=== PATIENT | male | born 1955 | race Caucasian/White ===

== ENCOUNTER 2019-10-25 13:47 | Outpatient (REF) | payer SELFPAY ==
[2019-10-25 19:25] LABS: Anion Gap 9.6 mmol/L (3-11); BUN 9 mg/dL (7-18); CO2 27.4 mmol/L (21.0-32.0); Calcium 8.3 mg/dL (8.5-10.1); Calculated LDL 102 mg/dL (<100); Chloride 107 mmol/L (98-107); Cholesterol 204 mg/dL (<200); Glucose 93 mg/dL (74-106); HDL Cholesterol 84 mg/dL (40-60); Potassium 4.3 mmol/L (3.5-5.1); Sodium 144 mmol/L (136-145); Triglyceride 92 mg/dL (<150)
== END 2019-10-25 14:07 ==
LOC: NCHCN 13:47
PROVIDERS: PCP Nurse Practitioner Family; Visit Provider Nurse Practitioner Family
DX: I10 Essential (primary) hypertension (principal); Z13.220 Encounter for screening for lipoid disorders
CPT/HCPCS: 80048; 80061

== ENCOUNTER 2019-11-17 11:31 | Outpatient (REF) | payer OTHER, SELFPAY ==
[2019-11-17 20:41] LABS: ESR 19 mm/hr (1-20)
[2019-11-18 16:07] LABS: CRP, High Sensitivity 6.26 mg/L (See Note)
[2019-11-18 16:10] LABS: Rheumatoid Factor <8.6 IU/mL (<12.0)
== END 2019-11-17 11:51 ==
LOC: NCHCN 11:31
PROVIDERS: PCP Nurse Practitioner Family; Visit Provider Nurse Practitioner Family
DX: M25.50 Pain in unspecified joint (principal)
CPT/HCPCS: 85652; 86141; 86431

== ENCOUNTER 2020-06-28 09:31 | Outpatient (REF) | payer OTHER, SELFPAY ==
[2020-06-28 21:05] LABS: ALT 34 U/L (16-63); AST 61 U/L (15-37); Albumin 3.5 g/dL (3.4-5.0); Alkaline Phosphatase 87 U/L (46-116); Amylase 41 U/L (25-115); Anion Gap 11.5 mmol/L (3-11); BUN 8 mg/dL (7-18); Bilirubin, Total 0.4 mg/dL (0.2-1.0); CO2 23.5 mmol/L (21.0-32.0); Calcium 8.6 mg/dL (8.5-10.1); Chloride 105 mmol/L (98-107); Glucose 128 mg/dL (74-106); Lipase 234 U/L (73-393); Potassium 4.2 mmol/L (3.5-5.1); Sodium 140 mmol/L (136-145); Total Protein 7.5 g/dL (6.4-8.2)
[2020-06-28 21:44] LABS: Bilirubin, Direct 0.15 mg/dL (0.00-0.20)
== END 2020-06-28 09:51 ==
LOC: NCHCN 09:31
PROVIDERS: PCP Nurse Practitioner Family; Visit Provider Nurse Practitioner Family
DX: I10 Essential (primary) hypertension (principal); R10.9 Unspecified abdominal pain
CPT/HCPCS: 80048; 80076; 83690; 82150

== ENCOUNTER 2022-08-08 11:06 | Outpatient (REF) | payer OTHER, SELFPAY ==
[2022-08-08 20:36] LABS: ALT 27 U/L (16-63); AST 39 U/L (15-37); Albumin 3.5 g/dL (3.4-5.0); Alkaline Phosphatase 103 U/L (46-116); Anion Gap 8.6 mmol/L (3-11); BUN 11 mg/dL (7-18); Bilirubin, Total 0.4 mg/dL (0.2-1.0); CO2 25.4 mmol/L (21.0-32.0); Calcium 9.1 mg/dL (8.5-10.1); Chloride 103 mmol/L (98-107); Estimated GFR 82.49 (mL/min/1.73m2); Glucose 157 mg/dL (74-106); Potassium 4.5 mmol/L (3.5-5.1); Sodium 137 mmol/L (136-145)
[2022-08-08 21:10] LABS: Hemoglobin A1C 5.8 % (<5.7)
== END 2022-08-08 11:07 | disposition home or self-care (01) ==
LOC: NCHCN 11:06
PROVIDERS: PCP Nurse Practitioner Family; Visit Provider Physician Assistant
DX: I10 Essential (primary) hypertension (principal); Z83.3 Family history of diabetes mellitus
CPT/HCPCS: 80053; 83036

== ENCOUNTER 2023-08-05 20:08 | Outpatient (REF) | payer MEDICARE, SELFPAY ==
[2023-08-05 19:05] LABS: Abs Immature Grans 0.02 10^3/uL (0.0-0.06); Absolute Basophil Count 0.12 10^3/uL (0.0-0.2); Absolute Eosinophil Count 0.33 10^3/uL (0.0-0.7); Absolute Lymphocyte Count 1.69 10^3/uL (1.2-3.4); Absolute Monocyte Count 0.84 10^3/uL (0.1-0.8); Absolute Neutrophil Count 4.65 10^3/uL (1.2-6.7); Basophils % 1.6; Eosinophils % 4.3; HCT 42.4 % (40.0-50.0); Immature Grans % 0.3; Lymphocytes % 22.1; MCH 28.9 pg (27.0-33.0); MCV 88 fL (80-95); Neutrophils % 60.7; Platelet Count 185 10^3/uL (130-400); RBC 4.84 10^6/uL (4.36-5.78); RDW 12.8 % (11.8-14.1); RDW-SD 41.1 fL; WBC 7.65 10^3/uL (4.4-10.8)
[2023-08-05 19:13] LABS: Hemoglobin A1C 6.2 % (<5.7)
[2023-08-05 19:32] LABS: ALT 22 U/L (16-63); AST 31 U/L (15-37); Albumin 3.3 g/dL (3.4-5.0); Alkaline Phosphatase 84 U/L (46-116); Anion Gap 8.4 mmol/L (3-11); BUN 9 mg/dL (7-18); Bilirubin, Total 0.4 mg/dL (0.2-1.0); CO2 24.6 mmol/L (21.0-32.0); Calcium 9.4 mg/dL (8.5-10.1); Chloride 107 mmol/L (98-107); Estimated GFR 81.98 (mL/min/1.73m2); Glucose 134 mg/dL (74-106); LDL CHOLESTEROL 86 mg/dL (<100); Potassium 4.3 mmol/L (3.5-5.1); Sodium 140 mmol/L (136-145); Total Protein 7.8 g/dL (6.4-8.2)
[2023-08-05 19:42] LABS: Uric Acid 6.4 mg/dL (3.5-7.2)
== END 2023-08-05 20:09 | disposition home or self-care (01) ==
LOC: NCHCN 20:08
PROVIDERS: PCP Nurse Practitioner Family; Visit Provider Physician Assistant
DX: I10 Essential (primary) hypertension (principal); R73.03 Prediabetes; M10.9 Gout, unspecified
CPT/HCPCS: 80053; 83721; 83036; 84550; 85025

== ENCOUNTER 2024-08-05 15:31 | Outpatient (REF) | payer MEDICARE, SELFPAY ==
[2024-08-05 19:39] LABS: ALT 30 U/L (16-63); AST 42 U/L (15-37); Albumin 3.4 g/dL (3.4-5.0); Alkaline Phosphatase 90 U/L (46-116); Anion Gap 8.8 mmol/L (3-11); BUN 9 mg/dL (7-18); Bilirubin, Total 0.52 mg/dL (0.2-1.0); CO2 25.2 mmol/L (21.0-32.0); Calcium 9.2 mg/dL (8.5-10.1); Chloride 107 mmol/L (98-107); Estimated GFR 81.47 (mL/min/1.73m2); Glucose 143 mg/dL (74-106); Potassium 4.2 mmol/L (3.5-5.1); Sodium 141 mmol/L (136-145); Total Protein 7.9 g/dL (6.4-8.2)
[2024-08-05 19:46] LABS: Hemoglobin A1C 6.2 % (<5.7)
[2024-08-09 22:40] LABS: Hepatitis C Ab w Rflx HCV PCR Negative (Negative)
== END 2024-08-05 15:32 | disposition home or self-care (01) ==
LOC: NCHCN 15:31
PROVIDERS: PCP Physician Assistant; Visit Provider Physician Assistant
DX: R73.03 Prediabetes (principal); I10 Essential (primary) hypertension; Z11.59 Encounter for screening for other viral diseases
CPT/HCPCS: 80053; 86803; 83036

== ENCOUNTER 2024-08-09 12:47 | Outpatient (REF) | payer MEDICARE, SELFPAY ==
[2024-08-09 19:18] LABS: Abs Immature Grans 0.04 10^3/uL (0.0-0.06); Absolute Basophil Count 0.11 10^3/uL (0.0-0.2); Absolute Eosinophil Count 0.29 10^3/uL (0.0-0.7); Absolute Lymphocyte Count 2.13 10^3/uL (1.2-3.4); Absolute Monocyte Count 0.86 10^3/uL (0.1-0.8); Absolute Neutrophil Count 5.07 10^3/uL (1.2-6.7); Basophils % 1.3 %; Eosinophils % 3.4 %; HCT 44.3 % (40.0-50.0); HGB 14.6 g/dL (13.5-17.5); Immature Grans % 0.5 %; Lymphocytes % 25.1 %; MCH 29.6 pg (27.0-33.0); MCV 90 fL (80-95); MPV 11.4 fL (8.0-11.0); Monocytes % 10.1 %; Neutrophils % 59.6 %; Platelet Count 189 10^3/uL (130-400); RBC 4.93 10^6/uL (4.36-5.78); RDW 12.9 % (11.8-14.1); RDW-SD 42.5 fL
[2024-08-09 19:30] LABS: Iron 84 ug/dL (65-175); Total Iron Binding Capacity 355 ug/dL (250-450); Transferrin Sat 24 % (20-55)
[2024-08-09 19:43] LABS: Calculated LDL 68 mg/dL (<100); Cholesterol 150 mg/dL (<200); Ferritin 262 ng/mL (26-388); HDL Cholesterol 58 mg/dL (40-60); Triglyceride 121 mg/dL (<150)
[2024-08-10 20:34] LABS: HBs Antibody, Quant <3.1 mIU/mL (See Note); Hepatitis B Surface Ab Negative (See Note)
[2024-08-10 20:45] LABS: Hepatitis B Surface Ag Negative (Negative)
== END 2024-08-09 12:48 | disposition home or self-care (01) ==
LOC: NCHCN 12:47
PROVIDERS: PCP Physician Assistant; Visit Provider Physician Assistant
DX: I10 Essential (primary) hypertension (principal)
CPT/HCPCS: 80061; 86706; 87340; 82728; 83540; 83550; 85025